=== PATIENT | male | born 1940 | race Caucasian/White ===

== ENCOUNTER 2020-10-28 19:27 | Inpatient (IN) | payer OTHER ==
[~2020-10-28] VITALS: Ht 180.3 cm; Wt 73.8 kg
[2020-10-29] MEDS ORDERED: FLOMAX0.4 MG PO ×2 (02:43→02:44)
[2020-10-29] MEDS ORDERED: LISINOPRIL20 MG PO (02:45)
[2020-10-29] MEDS ORDERED: OMEPRAZOLE40 MG PO (02:45)
[2020-10-29] MEDS ORDERED: ASA81BEC PO (02:46)
[2020-10-29] MEDS ORDERED: TRULICITY (02:46)
[2020-10-29] MEDS ORDERED: [UNRECOGNIZED DRUG - OTHER] (02:48)
[2020-10-29 04:05] VITALS: BP 128/68
[2020-10-29 05:29] LABS: ABSOLUTE NEUTROPHILS 4.6 thou/uL (1.4-8.2); BASOPHILS 0.4 % (0.0-2.0); EOSINOPHILS 1.8 % (0.0-3.0); HEMATOCRIT 32.9 % (42.0-52.0); HEMOGLOBIN 11.3 gm/dL (14.0-18.0); LYMPHOCYTES 15.1 % (24.0-44.0); MCH 32.6 pg (26.0-34.0); MCHC 34.3 g/dL (28.0-37.0); MCV 95.1 fL (80.0-100.0); MONOCYTES 12.1 % (1.0-8.0); PLATELET COUNT 210 thou/uL (150-400); POLYS 70.6 % (36.0-66.0); RBC 3.46 mil/uL (4.50-6.00); RDW 13.2 % (10.5-14.5); WBC 6.5 thou/uL (4.0-11.0)
[2020-10-29 05:58] LABS: ALBUMIN 2.3 g/dL (3.4-5.0); CALCIUM 8.5 mg/dL (8.5-10.1); CREATININE 1.5 mg/dL (0.7-1.3); MAGNESIUM 1.8 mg/dL (1.8-2.4); POTASSIUM 4.3 mmol/L (3.5-5.1); TOTAL BILIRUBIN 1.4 mg/dL (0.2-1.0); TOTAL PROTEIN 6.4 g/dL (6.4-8.2)
[2020-10-29 06:51] LABS: URINE BILIRUBIN NEGATIVE (Negative); URINE BLOOD NEGATIVE (Negative); URINE CLARITY CLEAR; URINE COLOR YELLOW; URINE GLUCOSE-RANDOM* NEGATIVE (Negative); URINE KETONES NEGATIVE (Negative); URINE LEUKOCYTES-REFLEX NEGATIVE (Negative); URINE NITRITE-REFLEX NEGATIVE (Negative); URINE PROTEIN (DIPSTICK) NEGATIVE (Negative); URINE SPECIFIC GRAVITY 1.025 (1.005-1.035)
[2020-10-29 07:20] VITALS: BP 114/63
[2020-10-29 12:49] VITALS: BP 114/63
[2020-10-29 16:15] VITALS: BP 109/64
[2020-10-29 19:50] VITALS: BP 140/68
[2020-10-30 04:20] LABS: ABSOLUTE NEUTROPHILS 3.1 thou/uL (1.4-8.2); BASOPHILS 0.4 % (0.0-2.0); EOSINOPHILS 3.5 % (0.0-3.0); HEMATOCRIT 30.6 % (42.0-52.0); HEMOGLOBIN 10.5 gm/dL (14.0-18.0); LYMPHOCYTES 22.6 % (24.0-44.0); MCH 32.5 pg (26.0-34.0); MCHC 34.3 g/dL (28.0-37.0); MCV 94.6 fL (80.0-100.0); MONOCYTES 14.1 % (1.0-8.0); PLATELET COUNT 206 thou/uL (150-400); POLYS 59.4 % (36.0-66.0); RBC 3.23 mil/uL (4.50-6.00); RDW 12.9 % (10.5-14.5); WBC 5.3 thou/uL (4.0-11.0)
[2020-10-30 04:37] LABS: ALBUMIN 2.3 g/dL (3.4-5.0); CALCIUM 8.4 mg/dL (8.5-10.1); CREATININE 1.5 mg/dL (0.7-1.3); MAGNESIUM 1.7 mg/dL (1.8-2.4); PHOSPHORUS 2.7 mg/dL (2.5-4.9); POTASSIUM 4.1 mmol/L (3.5-5.1); TOTAL BILIRUBIN 0.8 mg/dL (0.2-1.0); TOTAL PROTEIN 6.3 g/dL (6.4-8.2)
[2020-10-30 07:19] VITALS: BP 101/64
[2020-10-30 16:07] VITALS: BP 118/63
[2020-10-31 02:30] VITALS: BP 107/51
[2020-10-31 04:30] VITALS: BP 114/64
[2020-10-31 04:56] LABS: ABSOLUTE NEUTROPHILS 2.8 thou/uL (1.4-8.2); BASOPHILS 0.5 % (0.0-2.0); EOSINOPHILS 3.3 % (0.0-3.0); HEMATOCRIT 30.4 % (42.0-52.0); LYMPHOCYTES 24.1 % (24.0-44.0); MCH 34.2 pg (26.0-34.0); MCHC 36.1 g/dL (28.0-37.0); MCV 94.8 fL (80.0-100.0); MONOCYTES 14.2 % (1.0-8.0); PLATELET COUNT 212 thou/uL (150-400); POLYS 57.9 % (36.0-66.0); RBC 3.21 mil/uL (4.50-6.00); RDW 13.1 % (10.5-14.5); WBC 4.8 thou/uL (4.0-11.0)
[2020-10-31 05:06] LABS: INR 1.12; PROTIME 12.1 Seconds (10.5-12.1)
[2020-10-31 05:08] LABS: CALCIUM 8.8 mg/dL (8.5-10.1); CREATININE 1.4 mg/dL (0.7-1.3); POTASSIUM 4.2 mmol/L (3.5-5.1)
[2020-10-31 07:31] VITALS: BP 117/63
[2020-10-31 15:18] VITALS: BP 106/57
[2020-10-31 20:47] VITALS: BP 127/58
[2020-11-01 02:05] LABS: GLYCOHEMOGLOBIN (HGB A1C) 5.4 % (4.8-5.6)
[2020-11-01 05:56] LABS: CALCIUM 8.5 mg/dL (8.5-10.1); CREATININE 1.3 mg/dL (0.7-1.3); MAGNESIUM 1.7 mg/dL (1.8-2.4); POTASSIUM 3.9 mmol/L (3.5-5.1)
[2020-11-01 07:58] VITALS: BP 119/64
== END 2020-11-01 19:23 | disposition left against medical advice (07) | DRG 391 ==
LOC: 4W 19:27
PROVIDERS: Internal Medicine; Nurse Practitioner; ADMIT Internal Medicine; ATTEND Internal Medicine
DX: K52.9 Noninfective gastroenteritis and colitis, unspecified (principal); E43 Unspecified severe protein-calorie malnutrition; N17.9 Acute kidney failure, unspecified; K57.92 Diverticulitis of intestine, part unspecified, without perforation or abscess without bleeding; E46 Unspecified protein-calorie malnutrition; R91.8 Other nonspecific abnormal finding of lung field; E11.22 Type 2 diabetes mellitus with diabetic chronic kidney disease; I12.9 Hypertensive chronic kidney disease with stage 1 through stage 4 chronic kidney disease, or unspecified chronic kidney disease; N18.9 Chronic kidney disease, unspecified; E07.89 Other specified disorders of thyroid; N40.0 Benign prostatic hyperplasia without lower urinary tract symptoms; K21.9 Gastro-esophageal reflux disease without esophagitis; J44.9 Chronic obstructive pulmonary disease, unspecified; D64.9 Anemia, unspecified; J84.10 Pulmonary fibrosis, unspecified; R16.1 Splenomegaly, not elsewhere classified; Z53.21 Procedure and treatment not carried out due to patient leaving prior to being seen by health care provider; Z90.49 Acquired absence of other specified parts of digestive tract; Z86.718 Personal history of other venous thrombosis and embolism; Z68.22 Body mass index [BMI] 22.0-22.9, adult; Z88.1 Allergy status to other antibiotic agents; Z88.5 Allergy status to narcotic agent; Z88.8 Allergy status to other drugs, medicaments and biological substances; Z98.42 Cataract extraction status, left eye; Z98.41 Cataract extraction status, right eye; Z87.891 Personal history of nicotine dependence
CPT/HCPCS: 10045

== ENCOUNTER → 2020-12-08 | Outpatient (CLI) | payer OTHER ==
[2020-12-08] VITALS (8 sets, daily range): BP systolic 108–135; BP diastolic 56–74
[~2020-12-08] VITALS: Ht 175.3 cm; Wt 70.9 kg
[~2020-12-08] MED LIST: ASA81BEC PO; FLOMAX0.4 MG PO; HYDROCODON-ACE1 EAC7 PO; LISINOPRIL10 MG PO; LISINOPRIL20 MG PO; OMEPRAZOLE40 MG PO; SPIRIVA INH; TRULICITY; TRULICITY3 MG/0.5 M SUBQ; [UNRECOGNIZED DRUG - OTHER]
[2020-12-08 08:41] LABS: ABSOLUTE NEUTROPHILS 4.5 thou/uL (1.4-8.2); BASOPHILS 0.6 % (0.0-2.0); EOSINOPHILS 3.3 % (0.0-3.0); HEMATOCRIT 36.2 % (42.0-52.0); HEMOGLOBIN 12.4 gm/dL (14.0-18.0); LYMPHOCYTES 17.4 % (24.0-44.0); MCH 32.8 pg (26.0-34.0); MCHC 34.3 g/dL (28.0-37.0); MCV 95.7 fL (80.0-100.0); MONOCYTES 11.2 % (1.0-8.0); PLATELET COUNT 251 thou/uL (150-400); POLYS 67.5 % (36.0-66.0); RBC 3.78 mil/uL (4.50-6.00); RDW 13.3 % (10.5-14.5); WBC 6.6 thou/uL (4.0-11.0)
[2020-12-08 08:50] LABS: CALCIUM 9.3 mg/dL (8.5-10.1); CREATININE 1.7 mg/dL (0.7-1.3); POTASSIUM 4.6 mmol/L (3.5-5.1)
[2020-12-08 09:50] LABS: INR 0.9; PROTIME 9.9 Seconds (9.3-11.4)
--- NOTE | 2020-12-10 19:07 | PATH ---
[facility] [address] [address] [place] [address] PATHOLOGY RPT PROCEDURE Name: SANKET KHALIL Room #: REG [facility]..#: [id number] Admission: 12/08/20 Date of : 40 Discharge: Report #: [id number] Path Case #: [id number] Note [facility] Accession Number: [id number] TESTS RESULT FLAG UNITS REF RANGE LAB Clinician Provided Cytology Information No. of containers..01 Other (Miscellaneous) Source: 01 LEFT THY DIAGNOSIS: LEFT THYROID, FINE NEEDLE ASPIRATION NEGATIVE FOR MALIGNANT EPITHELIAL CELLS. BETHESDA CATEGORY II. SPECIMEN CONSISTS OF ABUNDANT GROUPS OF FOLLICULAR CELLS, HEMOSIDERIN-LADEN MACROPHAGES, WATERY AND DENSE COLLOID. THE PATTERN IS COMPATIBLE WITH AN ADENOMATOID NODULE. COLLOID IS PRESENT. THIS INTERPRETATION INCLUDES EVALUATION OF A CELL BLOCK. NEGATIVE FOR NUCLEAR FEATURES OF PAPILLARY THYROID CARCINOMA. Comment: Examination shows watery colloid, rare hemosiderin laden macrophages, groups of micro and macrofollicles. Findings are suggestive of an adenomatoid nodule. Differential diagnosis includes a folliclular adenoma. Nuclear features of papillary thyroid carcinoma are not identified. Please note sample may not be entirely contact representative; correlate clinically and follow-up as indicated. Pathologist ICD10: 02 E04.1 Signed out by: 02 Jacqueline English MD, Pathologist NPI- [id number] Performed by: Igor Bob, Concrete Pipe Making Machine Operator ([facility]) Gross description: 01 20ML, CLOUDY PINK, 3 F 3 AD /LCS 12/09/2020 2352 Local FLAG LEGEND: L-Low Normal,H-High Normal,LL-Alert Low,HH-Alert High <-Panic Low,>-Panic High,A-Abnormal,AA-Critical Abnormal Performed at: 01 [place] [facility] [address] [place] [address] [address] [place] [address] Martin Hampton MD, 02 LC[facility] [address] [address] [address] PATHOLOGY RPT PROCEDURE Name: SANKET KHALIL Room #: REG VEL Yepez#: [id number] Admission: 12/08/20 Date of : 40 Discharge: Report #: [id number] Path Case #: [id number] Jacqueline English MD, Performed at: 01 [facility] [place] [address], [place], [place] [id number] MD Martin Hampton MD Phone: [phone]
--- NOTE | 2020-12-20 18:06 | PATH ---
[facility] [place] [address] [place] [address] PATHOLOGY RPT PROCEDURE Name: SANKET KHALIL Room #: REG [facility] M..#: [id number] Admission: 12/08/20 Date of : 40 Discharge: Report #: [id number] Path Case #: [id number] L[facility] Accession Number: [id number] . 01 Material submitted: . lung - LEFT LUNG. Modifiers: left . 01 Clinical history: . . . 01 Amended report: . This is an amended report because the account requested a test change. There is no change in the diagnosis. This case is being amended as the original report was signed out as it was just sent for a flow study. A specimen has now been received; therefore an amendment is necessary to enter the gross description. No other changes are made. . 02 Diagnosis: Tissue designated as, "left lung", needle core biopsy: - Predominantly non-viable tissue with fragments of cartilage showing degenerative changes. - No definite viable epithelial cells or malignant cells present. . (IUV:mml; 12/20/2020) . . . Special studies report received from [facility], [address] [place] [address], [address], [place], [address], on case [id number], labeled with their number [id number], dated 12/10/2020. . Flow Cytometry: Hematologic Neoplasia Assessment . Clinical History Evaluation for hematolymphoid neoplasia . 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 Specimen Left Lung . Viability 61% (7AAD exclusion) . Interpretation Left Lung: [address] [address] PATHOLOGY RPT PROCEDURE Name: SANKET KHALIL [facility] [id number] Admission: 12/08/20 Date of : 40 Discharge: Report #: [id number] Path Case #: [id number] No significant lymphoid immunophenotypic abnormalities detected . Comments There are no significant immunophenotypic abnormalities in this specimen. It is of note that non-hematolymphoid neoplasms, Hodgkin lymphoma, some T-cell lymphomas and some large cell lymphomas cannot be totally excluded based solely on flow cytometry analysis. Correlation with available clinical, laboratory, and morphologic data is recommended. . Populations Analyzed Lymphocytes: 28% B-cells: 1.1%, polytypic/polyclonal sIg light chain pattern T-cells: no significant abnormalities of the markers tested CD4:CD8: 2.1 NK cells: 2.8% Granulocytes: 19% Present Monocytes/ 2% Present Histiocytes: CD45 Negative 51% No significant reactivity with the markers tested Events/Debris: (may represent non-hematolymphoid cells, degenerated cells, debris, unlysed red blood cells, etc.) . Morphologic Evaluation A slide was reviewed for quality assurance supervisor chassis purposes only. . Specimen Description Cell Yield: 0.33 x 10 and 6 Due to a low cellular yield, an average of 3300 events were acquired per tube. Flow cytometry data derived from an acquisition of less than 10,000 events needs to be interpreted within the context of all clinical, laboratory, and morphologic information. . Reagent(s) Used CD2, CD3, CD4, CD5, CD7, CD8, CD10, CD11b, CD19, CD20, CD23, CD30, CD38, CD43, CD45, CD56, CD57, FMC-7, HLA-DR, kappa, lambda . at [facility] [employer]. Brady Schmid MD Pathologist . . Intended Use Flow cytometry is optimally used to immunophenotypically characterize abnormal populations when they are detected. Negative flow cytometry results do not exclude lymphoma or neoplasia. Possible false negative flow cytometry results may occur in, but are not limited to, the following: [address] [address] PATHOLOGY RPT PROCEDURE Name: REMISANKET WILLAMS Room #: REG CL Priscilla.#: [id number] Admission: 12/08/20 Date of : 40 Discharge: Report #: [id number] Path Case #: [id number] neoplastic cells in Hodgkin lymphoma are not typically adequately represented by routine clinical flow cytometry; neoplastic cells may be lost or inadequately represented due to degeneration, sample processing, sampling artifact, or patchy involvement; plasma cells are typically underrepresented by flow cytometry; immature cells/blasts may be underrepresented due to hemodilution; myeloproliferative disorders and low grade myelodysplasia may not have immunophenotypic abnormalities or increased blasts. Correlation with all available clinical, laboratory, and morphologic data is always necessary to assess for the possibility of false negative flow cytometry results and to establish a diagnosis. Each marker in this analysis was used to assess for potential antigenic abnormalities or to evaluate detected abnormalities. . Any image or images that accompany this report are employment program representative images only and should not be used to render a diagnosis. . Disclaimer(s) This test was developed and its performance characteristics determined by [facility] [employer]. It has not been cleared or approved by the Food and Drug Administration. . [facility] is a business unit of [employer] a wholly-owned subsidiary of [employer]. . This test was performed at [facility]. at [address], [address] - [place]: Wilfredo Long MD. . For inquiries, the physician may contact Lab: [phone] . A complete copy of the report is on file. . Professional services performed by [facility] at [address], [place] [address]. Technical services performed by [facility] at [address], [place] [address]. . (IUV:amjoe 12/14/2020) . [facility] 12/20/2020 [facility]5 Local . 02 Comment: Examination shows fragments of cartilaginous tissue associated with degenerative changes. Viable lymphoid cells, malignant epithelial cells, or mashpee lung tissue are not identified. This is likely due to the fact [facility] [address] [place] [address] PATHOLOGY RPT PROCEDURE Name: SANKET KHALIL Room #: REG [facility]#: [id number] Admission: 12/08/20 Date of : 40 Discharge: Report #: [id number] Path Case #: [id number] that the specimen was sent in RPMI for flow cytometric analysis. . Flow cytometric analysis showed no significant lymphoid immunophenotypic abnormalities. . The specimen was retrieved from flow cytometric analysis subsequent to the same and submitted for histologic examination due to the fact that the lesion represents a "lung mass". Lack of viable cells deems the tissue insufficient and a repeat study is suggested for a definitive diagnosis. . The submission of tissue in RPMI sent for flow cytometric analysis, and therefore lack of a tissue diagnosis was discussed with Dr. Seth Macias on December 15, 2020 at approximately 3:45 p.m. . (IUV:mml; 12/20/2020) . 02 Electronically signed: . Jacqueline English MD, Pathologist NPI- [id number] . 01 Gross description: . AMENDED REPORT: 12/17/2020; pepe REASON FOR AMENDMENT: THIS CASE HAS ALREADY BEEN SIGNED OUT IT WAS INITIALLY JUST SENT FOR FLOW. WE HAVE SUBSEQUENTLY RECEIVED A SPECIMEN BACK, THEREFORE, THE CASE IS AMENDED FOR THE PURPOSE OF ADDING THE GROSS DESCRIPTION. . . The specimen is received in RPMI solution, labeled "Sanket Khalil, left lung biopsy". Soft tissue is not grossly identified within the container. The contents are filtered and entirely submitted in cassette A1. Due to the minute nature of the specimen, it may not survive processing. (CAA; 12/17/2020) /QMS 12/17/2020 1213 Local . 02 Pathologist provided ICD-10: R06.02 . 02 CPT . 431454 Specimen Comment: A courtesy copy of this report has been sent to [phone] Specimen Comment: Report sent to Performed at: [address], [place], [place] [id number] MD Martin Hampton MD Phone: [phone] Performed at: [address] [facility] [address] [place] [address] PATHOLOGY RPT PROCEDURE Name: SANKET KHALIL Room #: REG VEL Yepez#: [id number] Admission: 12/08/20 Date of : 40 Discharge: Report #: [id number] Path Case #: [id number] [address] [place], [place] [id number] MD Jacqueline English MD Phone: [phone]
== END | disposition home or self-care (01) ==
LOC: ULTRA 07:58
PROVIDERS: ATTEND Pediatrics
DX: R91.8 Other nonspecific abnormal finding of lung field (principal); J98.4 Other disorders of lung; R06.02 Shortness of breath; E04.1 Nontoxic single thyroid nodule; I10 Essential (primary) hypertension; E11.9 Type 2 diabetes mellitus without complications; J44.9 Chronic obstructive pulmonary disease, unspecified; Z98.890 Other specified postprocedural states; Z79.899 Other long term (current) drug therapy; Z90.49 Acquired absence of other specified parts of digestive tract; Z79.4 Long term (current) use of insulin; Z87.891 Personal history of nicotine dependence

== ENCOUNTER → 2020-12-29 | Outpatient (CLI) | payer OTHER | LOC: CAT 09:35 | PROVIDERS: ATTEND Pediatrics | DX: J84.10 Pulmonary fibrosis, unspecified (principal); J43.8 Other emphysema; R91.8 Other nonspecific abnormal finding of lung field ==

== ENCOUNTER → 2021-01-04 | Outpatient (CLI) | payer OTHER ==
[~2021-01-04] VITALS: Ht 177.8 cm; Wt 69.9 kg
[2021-01-04 09:18] VITALS: BP 125/64
--- NOTE | 2021-01-06 17:06 | PATH ---
[facility] [address] [address] [address] PATHOLOGY RPT PROCEDURE Name: SANKET KHALIL Room #: REG VEL Yepez#: [id number] Admission: 01/04/21 Date of : 40 Discharge: Report #: [id number] Path Case #: [id number] L[facility] Accession Number: [id number] . 01 Material submitted: . lung - LEFT UPPER LOBE TBNA BIOPSY NEEDLE FORCEPS. Modifiers: left, upper . 01 Clinical history: . LUNG NODULES BRONCHOSCOPY CARMEN TBNA BIOPSY NEEDLE/FORCEPS PUL/OR/BRONCHOSCOPY/LT LUNG MASS . 02 Diagnosis: Lung, left upper lobe, TBNA biopsy needle/forceps: - MODERATELY DIFFERENTIATED SQUAMOUS CELL CARCINOMA, SEE COMMENT. . (IUV:mml; 01/06/2021) QLM 01/06/2021 1224 Local . 02 Comment: Examination shows a moderately-differentiated non-small cell carcinoma with squamoid features and abundant clear cells. Focal mucinous metaplasia is identified as well. Multiple properly-controlled immunohistochemical stains are performed on block A1. The tumor cells are strongly reactive to p63 and are non-reactive to TTF-1. Findings are consistent with a moderately-differentiated squamous cell carcinoma. . Dr. Jennifer Joe has seen sales training representative slides of this case and concurs with my diagnosis. . The findings of this case are communicated to Dr. Seth Macias on the morning of 01/06/2021. . (IUV:mml; 01/06/2021) . 02 Electronically signed: . Jacqueline English MD, Pathologist NPI- [id number] . 01 Gross description: . The specimen is received in formalin, labeled "Sanket Khalil TBNA biopsy". The specimen is additionally labeled on the requisition as, "CARMEN TBNA biopsy". Received are multiple segments of pale allen tissue admixed with blood coagulum measuring 0.8 x 0.7 x 0.1 cm in aggregate dimensions. The specimen is filtered and entirely submitted in cassette A1. (CAA; 01/04/2021) [address] [address] PATHOLOGY RPT PROCEDURE Name: SANKET KHALIL Room #: REG VEL Yepez#: [id number] Admission: 01/04/21 Date of : 40 Discharge: Report #: [id number] Path Case #: [id number] QAC/QAC 01/04/[address] [place] [address] . 02 Pathologist provided ICD-10: C34.12 . 02 CPT . 392692, T41278, O27963 Specimen Comment: A courtesy copy of this report has been sent to [phone] Specimen Comment: Report sent to Performed at: [address], [place] [id number] MD Martin Hampton MD Phone: [phone] Performed at: [address] [id number] MD Jacqueline English MD Phone: [phone]
--- NOTE | 2021-01-07 18:06 | PATH ---
[facility] [place] [address] [place] [address] PATHOLOGY RPT PROCEDURE Name: SANKET HKALIL Room #: REG VEL Wells.#: [id number] Admission: 01/04/21 Date of : 40 Discharge: Report #: [id number] Path Case #: [id number] Note [facility] Accession Number: [id number] TESTS RESULT FLAG UNITS REF RANGE LAB Clinician Provided Cytology Information No. of containers..01 Slide Source: [A] 01 BRUSHING CARMEN DIAGNOSIS: [A] 02 BRUSHING CARMEN POSITIVE FOR MALIGNANT CELLS. SQUAMOUS CELL CARCINOMA IS PRESENT. Comment: The concurrent CARMEN biopsy tissue [id number] showed a squamous cell carcinoma. Please refer to a separate report for details. Pathologist ICD10: 02 C34.92 Signed out by: Jacqueline English MD, Pathologist NPI- [id number] Performed by: Kelley Bob, Chief Service Dispatcher ([facility]) Gross description: 2 FX /LESLI 01/06/2021 1713 Local FLAG LEGEND: L-Low Normal,H-High Normal,LL-Alert Low,HH-Alert High <-Panic Low,>-Panic High,A-Abnormal,AA-Critical Abnormal Performed at: [address] [place] [address] Martin Hampton MD, [address] [address] Jacqueline English MD, Performed at: [address], [place], [place] [id number] MD Martin Hampton MD Phone: [phone]
--- NOTE | 2021-01-07 18:06 | PATH ---
[facility] [address] [place] [address] PATHOLOGY RPT PROCEDURE Name: SANKET KHALIL Room #: REG VEL [facility].#: [id number] Admission: 01/04/21 Date of : 40 Discharge: Report #: [id number] Path Case #: [id number] Note [facility] Accession Number: [id number] TESTS RESULT FLAG UNITS REF RANGE LAB Clinician Provided Cytology Information No. of containers..01 Other (Miscellaneous) Source: [A] 01 BRUSH TIP CARMEN DIAGNOSIS: [A] 02 BRUSH TIP CARMEN POSITIVE FOR MALIGNANT CELLS. SQUAMOUS CELL CARCINOMA IS PRESENT. Comment: The concurrent CARMEN biopsy [id number] showed a squamous cell carcinoma. Please refer to a separate report for details. Pathologist ICD10: 02 C34.92 Signed out by: 02 Jacqueline English MD, Pathologist NPI- [id number] Performed by: Kelley Bob, Frankfurter Inspector ([facility]) Gross description: 01 CLEAR COLORLESS, 1 TP /LCS 01/06/2021 1711 Local FLAG LEGEND: L-Low Normal,H-High Normal,LL-Alert Low,HH-Alert High <-Panic Low,>-Panic High,A-Abnormal,AA-Critical Abnormal Performed at: [address] [place] [address] Martin Hampton MD, [address] [address] Jacqueline English MD, Performed at: [address], [place], [place] [id number] MD Martin Hampton MD Phone: [phone]
--- NOTE | 2021-01-10 07:06 | PATH ---
[facility] [address] [place] [address] PATHOLOGY RPT PROCEDURE Name: SANKET KHALIL Room #: REG VEL [facility].#: [id number] Admission: 01/04/21 Date of : 40 Discharge: Report #: [id number] Path Case #: [id number] Note [facility] Accession Number: [id number] TESTS RESULT FLAG UNITS REF RANGE LAB Clinician Provided Cytology Information No. of containers..01 Other (Miscellaneous) Source: BAL CARMEN DIAGNOSIS: BAL CARMEN INCONCLUSIVE. RARE MARKEDLY ATYPICAL SQUAMOUS EPITHELIAL CELLS, SUSPICIOUS FOR NEOPLASM. Comment: [id number], concurrent biopsy tissue showed a squamous cell carcinoma. Please refer to a separate report for details. Pathologist ICD10: 02 C34.92 Signed out by: Jacqueline English MD, Pathologist NPI- [id number] Performed by: Kelley Bob, Pest Controller Assistant ([facility]) Gross description: 01 10ML, BLOODY RED, 1 TP /LCS 01/06/2021 1709 Local FLAG LEGEND: L-Low Normal,H-High Normal,LL-Alert Low,HH-Alert High <-Panic Low,>-Panic High,A-Abnormal,AA-Critical Abnormal Performed at: [address] [place] [address] Martin Hampton MD, [address] [address] Jacqueline English MD, Performed at: [address], [place], [place] [id number] MD Martin Hampton MD Phone: [phone]
== END | disposition home or self-care (01) ==
LOC: PUL 07:50
PROVIDERS: ATTEND Pediatrics
DX: C34.12 Malignant neoplasm of upper lobe, left bronchus or lung (principal); R91.8 Other nonspecific abnormal finding of lung field; R04.2 Hemoptysis; I10 Essential (primary) hypertension; E11.9 Type 2 diabetes mellitus without complications; K21.9 Gastro-esophageal reflux disease without esophagitis; Z98.890 Other specified postprocedural states; Z20.822 Contact with and (suspected) exposure to COVID-19; Z90.49 Acquired absence of other specified parts of digestive tract; Z87.891 Personal history of nicotine dependence; Z79.899 Other long term (current) drug therapy; Z88.8 Allergy status to other drugs, medicaments and biological substances
CPT/HCPCS: 62110; 62900; 70005